=== PATIENT | female | born 1970 | race Asian ===

== ENCOUNTER → 2021-07-26 | Outpatient (CLI) | payer BC | LOC: MC.RAD 09:55 | DX: Z12.31 Encounter for screening mammogram for malignant neoplasm of breast (principal) ==

== ENCOUNTER → 2022-06-05 | Outpatient (CLI) | payer BC | LOC: COL.RAD 10:43 | DX: Z90.49 Acquired absence of other specified parts of digestive tract (principal) ==

== ENCOUNTER → 2022-07-26 | Outpatient (CLI) | payer BC | LOC: COL.RAD 08:38 | DX: R74.8 Abnormal levels of other serum enzymes (principal) | CPT/HCPCS: A9503 ==